=== PATIENT | male | born 1965 | race Caucasian/White ===

== ENCOUNTER 2023-01-31 13:57 | Outpatient (RCR) | payer MEDICARE, BC, SELFPAY | END 2023-01-31 23:59 | disposition home or self-care (01) | LOC: RPT 13:57 | PROVIDERS: ATTENDING PHYSICIAN Physical Medicine & Rehabilitation; FAMILY PHYSICIAN Family Medicine | DX: I69.398 Other sequelae of cerebral infarction (principal); Z73.6 Limitation of activities due to disability; G81.10 Spastic hemiplegia affecting unspecified side; G81.11 Spastic hemiplegia affecting right dominant side; M21.541 Acquired clubfoot, right foot | CPT/HCPCS: 97112; 97116; 97140 ==

== ENCOUNTER 2023-03-14 14:01 | Outpatient (RCR) | payer MEDICARE, BC, SELFPAY | END 2023-03-14 23:59 | disposition home or self-care (01) | LOC: RPT 14:01 | PROVIDERS: ATTENDING PHYSICIAN Physical Medicine & Rehabilitation; FAMILY PHYSICIAN Family Medicine | DX: I69.398 Other sequelae of cerebral infarction (principal); Z73.6 Limitation of activities due to disability; G81.10 Spastic hemiplegia affecting unspecified side; M21.541 Acquired clubfoot, right foot | CPT/HCPCS: 97110; 97112; 97140 ==

== ENCOUNTER 2023-04-24 12:59 | Outpatient (RCR) | payer MEDICARE, BC, SELFPAY | END 2023-04-24 23:59 | disposition home or self-care (01) | LOC: RPT 12:59 | PROVIDERS: ATTENDING PHYSICIAN Physical Medicine & Rehabilitation; FAMILY PHYSICIAN Family Medicine | DX: I69.398 Other sequelae of cerebral infarction (principal); Z73.6 Limitation of activities due to disability; G81.10 Spastic hemiplegia affecting unspecified side; M21.541 Acquired clubfoot, right foot | CPT/HCPCS: 97112; 97116; 97140 ==

== ENCOUNTER 2023-05-13 11:09 | Outpatient (RCR) | payer MEDICARE, BC, SELFPAY | END 2023-05-13 23:59 | disposition home or self-care (01) | LOC: RPT 11:09 | PROVIDERS: ATTENDING PHYSICIAN Physical Medicine & Rehabilitation; FAMILY PHYSICIAN Family Medicine | DX: I69.398 Other sequelae of cerebral infarction (principal); Z73.6 Limitation of activities due to disability; G81.10 Spastic hemiplegia affecting unspecified side; M21.541 Acquired clubfoot, right foot | CPT/HCPCS: 97112; 97116; 97140 ==

== ENCOUNTER 2023-06-20 14:59 | Outpatient (RCR) | payer MEDICARE, BC, SELFPAY | END 2023-06-20 23:59 | disposition home or self-care (01) | LOC: RPT 14:59 | PROVIDERS: ATTENDING PHYSICIAN Physical Medicine & Rehabilitation; FAMILY PHYSICIAN Family Medicine | DX: I69.398 Other sequelae of cerebral infarction (principal); Z73.6 Limitation of activities due to disability; G81.10 Spastic hemiplegia affecting unspecified side; M21.541 Acquired clubfoot, right foot | CPT/HCPCS: 97112; 97116; 97140 ==

== ENCOUNTER 2023-07-25 09:05 | Outpatient (RCR) | payer MEDICARE, BC, SELFPAY | END 2023-07-25 23:59 | disposition home or self-care (01) | LOC: RPT 09:05 | PROVIDERS: ATTENDING PHYSICIAN Physical Medicine & Rehabilitation; FAMILY PHYSICIAN Family Medicine | DX: I69.398 Other sequelae of cerebral infarction (principal); Z73.6 Limitation of activities due to disability; G81.10 Spastic hemiplegia affecting unspecified side; M21.541 Acquired clubfoot, right foot | CPT/HCPCS: 97112; 97116; 97140 ==

== ENCOUNTER 2023-08-08 10:30 | Outpatient (RCR) | payer MEDICARE, BC, SELFPAY | END 2023-08-08 23:59 | disposition home or self-care (01) | LOC: RPT 10:30 | PROVIDERS: ATTENDING PHYSICIAN Physical Medicine & Rehabilitation; FAMILY PHYSICIAN Family Medicine | DX: I69.398 Other sequelae of cerebral infarction (principal); Z73.6 Limitation of activities due to disability; M21.541 Acquired clubfoot, right foot; G81.10 Spastic hemiplegia affecting unspecified side | CPT/HCPCS: 97112; 97116; 97140 ==

== ENCOUNTER 2023-09-16 10:53 | Outpatient (RCR) | payer MEDICARE, OTHER, SELFPAY | END 2023-09-16 23:59 | disposition home or self-care (01) | LOC: RPT 10:53 | PROVIDERS: ATTENDING PHYSICIAN Physical Medicine & Rehabilitation; FAMILY PHYSICIAN Family Medicine | DX: I69.398 Other sequelae of cerebral infarction (principal); R26.89 Other abnormalities of gait and mobility; G81.10 Spastic hemiplegia affecting unspecified side; Z73.6 Limitation of activities due to disability; M21.541 Acquired clubfoot, right foot | CPT/HCPCS: 97112; 97140 ==

== ENCOUNTER 2023-10-14 14:58 | Outpatient (RCR) | payer MEDICARE, OTHER, SELFPAY | END 2023-10-14 23:59 | disposition home or self-care (01) | LOC: RPT 14:58 | PROVIDERS: ATTENDING PHYSICIAN Physical Medicine & Rehabilitation; FAMILY PHYSICIAN Family Medicine | DX: I69.398 Other sequelae of cerebral infarction (principal); Z73.6 Limitation of activities due to disability; G81.10 Spastic hemiplegia affecting unspecified side; M21.541 Acquired clubfoot, right foot | CPT/HCPCS: 97112; 97116; 97140 ==

== ENCOUNTER 2023-11-25 12:55 | Outpatient (RCR) | payer MEDICARE, OTHER, SELFPAY | END 2023-11-25 23:59 | disposition home or self-care (01) | LOC: RPT 12:55 | PROVIDERS: ATTENDING PHYSICIAN Physical Medicine & Rehabilitation; FAMILY PHYSICIAN Family Medicine | DX: I69.398 Other sequelae of cerebral infarction (principal); Z73.6 Limitation of activities due to disability; G81.10 Spastic hemiplegia affecting unspecified side; M21.541 Acquired clubfoot, right foot | CPT/HCPCS: 97116; 97140 ==

== ENCOUNTER 2024-01-13 14:08 | Outpatient (RCR) | payer MEDICARE, OTHER, SELFPAY | END 2024-01-13 23:59 | disposition home or self-care (01) | LOC: RPT 14:08 | PROVIDERS: ATTENDING PHYSICIAN Physical Medicine & Rehabilitation; FAMILY PHYSICIAN Family Medicine | DX: S06.9X0D Unspecified intracranial injury without loss of consciousness, subsequent encounter (principal); R41.840 Attention and concentration deficit; R41.89 Other symptoms and signs involving cognitive functions and awareness; Z73.6 Limitation of activities due to disability | CPT/HCPCS: 96125; 97110; 97112; 97116; 97129; 97130; 97140; 97163; 97530 ==

== ENCOUNTER 2024-02-10 15:14 | Outpatient (RCR) | payer MEDICARE, OTHER, SELFPAY | END 2024-02-10 23:59 | disposition home or self-care (01) | LOC: RPT 15:14 | PROVIDERS: ATTENDING PHYSICIAN Physical Medicine & Rehabilitation; FAMILY PHYSICIAN Family Medicine | DX: S06.9X0D Unspecified intracranial injury without loss of consciousness, subsequent encounter (principal); R41.840 Attention and concentration deficit; R41.89 Other symptoms and signs involving cognitive functions and awareness; Z73.6 Limitation of activities due to disability | CPT/HCPCS: 97110; 97112; 97116; 97129; 97130; 97140; 97530 ==

== ENCOUNTER 2024-03-25 13:23 | Outpatient (RCR) | payer MEDICARE, OTHER, SELFPAY | END 2024-03-25 23:59 | disposition home or self-care (01) | LOC: RPT 13:23 | PROVIDERS: ATTENDING PHYSICIAN Physical Medicine & Rehabilitation; FAMILY PHYSICIAN Family Medicine | DX: S06.9X0D Unspecified intracranial injury without loss of consciousness, subsequent encounter (principal); S42.001D Fracture of unspecified part of right clavicle, subsequent encounter for fracture with routine healing; Z73.6 Limitation of activities due to disability; R26.2 Difficulty in walking, not elsewhere classified; R41.840 Attention and concentration deficit; R41.89 Other symptoms and signs involving cognitive functions and awareness; M62.81 Muscle weakness (generalized); I69.351 Hemiplegia and hemiparesis following cerebral infarction affecting right dominant side | CPT/HCPCS: 97110; 97112; 97116; 97129; 97130; 97140; 97530 ==

== ENCOUNTER 2024-04-22 12:52 | Outpatient (RCR) | payer MEDICARE, OTHER, SELFPAY | END 2024-04-22 23:59 | disposition home or self-care (01) | LOC: RPT 12:52 | PROVIDERS: ATTENDING PHYSICIAN Physical Medicine & Rehabilitation; FAMILY PHYSICIAN Family Medicine | DX: S06.9X0D Unspecified intracranial injury without loss of consciousness, subsequent encounter (principal); S42.001D Fracture of unspecified part of right clavicle, subsequent encounter for fracture with routine healing (principal); Z73.6 Limitation of activities due to disability; R26.2 Difficulty in walking, not elsewhere classified; R41.840 Attention and concentration deficit; R41.89 Other symptoms and signs involving cognitive functions and awareness; M62.81 Muscle weakness (generalized); I69.351 Hemiplegia and hemiparesis following cerebral infarction affecting right dominant side | CPT/HCPCS: 97110; 97112; 97116; 97129; 97130; 97140 ==

== ENCOUNTER 2024-05-20 14:23 | Outpatient (RCR) | payer MEDICARE, OTHER, SELFPAY | END 2024-05-20 23:59 | disposition home or self-care (01) | LOC: RPT 14:23 | PROVIDERS: ATTENDING PHYSICIAN Physical Medicine & Rehabilitation; FAMILY PHYSICIAN Family Medicine | DX: S06.9X0S Unspecified intracranial injury without loss of consciousness, sequela (principal); I69.351 Hemiplegia and hemiparesis following cerebral infarction affecting right dominant side; S42.001D Fracture of unspecified part of right clavicle, subsequent encounter for fracture with routine healing; R41.840 Attention and concentration deficit; R26.2 Difficulty in walking, not elsewhere classified; R41.89 Other symptoms and signs involving cognitive functions and awareness; Z73.6 Limitation of activities due to disability; M62.81 Muscle weakness (generalized); S06.9X0D Unspecified intracranial injury without loss of consciousness, subsequent encounter | CPT/HCPCS: 97110; 97112; 97116; 97129; 97130; 97140 ==

== ENCOUNTER 2024-06-10 12:52 | Outpatient (RCR) | payer MEDICARE, OTHER, SELFPAY | END 2024-06-10 23:59 | disposition home or self-care (01) | LOC: RPT 12:52 | PROVIDERS: ATTENDING PHYSICIAN Physical Medicine & Rehabilitation; FAMILY PHYSICIAN Family Medicine | DX: S06.9X0S Unspecified intracranial injury without loss of consciousness, sequela (principal); S42.001D Fracture of unspecified part of right clavicle, subsequent encounter for fracture with routine healing; R41.840 Attention and concentration deficit; R41.89 Other symptoms and signs involving cognitive functions and awareness; Z73.6 Limitation of activities due to disability; I69.351 Hemiplegia and hemiparesis following cerebral infarction affecting right dominant side; R26.2 Difficulty in walking, not elsewhere classified; M62.81 Muscle weakness (generalized); S06.9X0D Unspecified intracranial injury without loss of consciousness, subsequent encounter | CPT/HCPCS: 97110; 97112; 97129; 97130; 97140 ==

== ENCOUNTER 2024-06-23 14:29 | Emergency (ER) | payer MEDICARE, OTHER, SELFPAY ==
[2024-06-23 14:31] VITALS: BP 152/102
[2024-06-23 14:50] LABS: % Eosinophils 0.6 % (0-6); % Immature Granulocytes 0.2 % (0-0.5); % Lymphocytes 22.7 % (20.5-51.1); % Monocytes 3.7 % (1.7-9.3); % Neutrophils 72.8 % (42.2-75.2); Absolute Lymphocytes 1.2 10^3/uL (1.2-3.4); Absolute Monocytes 0.2 10^3/uL (0.1-0.6); Absolute Neutrophils 3.7 10^3/uL (1.4-6.5); Hematocrit 38.2 % (39.0-52.0); Hemoglobin 13.7 g/dL (13.0-18.0); Mean Corp Hgb Conc. 35.9 g/dL (33.0-37.0); Mean Corpuscular Hgb 31.4 pg (27.0-31.0); Mean Corpuscular Volume 87.6 fL (80.0-94.0); Mean Platelet Volume 9.2 fL (7.4-10.4); Nucleated Red Blood Cells % 0 % (-); Platelet Count 244 10^3/uL (130-400); Red Blood Cell Count 4.36 10^6/uL (4.70-6.10); Red Cell Dist. Width 12.1 % (11.5-14.5); White Blood Cell Count 5.1 10^3/uL (4.8-10.8)
[2024-06-23 15:07] LABS: ALT (SGPT) 21 U/L (0-50); AST (SGOT) 28 U/L (17-59); Albumin 4.4 g/dl (3.5-5.0); Alkaline Phosphatase 98 U/L (38-126); Blood Urea Nitrogen 4 mg/dl (9-20); Calcium 9.5 mg/dl (8.4-10.2); Carbon Dioxide 29 mmol/L (22-30); Chloride 94 mmol/L (98-107); Glucose 114 mg/dl (70-99); Potassium 4.2 mmol/L (3.5-5.1); Sodium 130 mmol/L (135-145); eGFR > 60.00
[2024-06-23 16:09] VITALS: BMI 30.2
[2024-06-23 16:15] VITALS: BP 135/85
[2024-06-23] MEDS: TORADOL 30 MG IV (17:03)
[2024-06-23] MEDS: NSS 1000 IV (17:03)
[2024-06-23] MEDS: COMPAZINE 10 MG IV (17:04)
[2024-06-23] MEDS: BENADRYL 25 MG IV (17:06)
[2024-06-23 18:30] VITALS: BP 145/85
--- NOTE | 2024-06-23 22:08 | ED.GENMED ---
History of Present Illness
General
Chief Complaint: Headache
Source: patient
Exam Limitations: none
Time Seen by Provider: 06/23/24 16:08
Nursing documentation reviewed up to this point in time: agreed with
History of Present Illness
History of Present Illness:
Patient to ED with complaint of headache x 4 days. Reports light sensitivity. Denies fever/chlls, recent illness. No history of trauma. Nausea without vomiting. No prior history of same. Brought to ED by brother for eval.
Past History
Past History
ED Past Medical History: CVA and GERD
ED Past Surgical History: Other
Social History
Tobacco: Non-smoker
Alcohol: None
Personal: Single
Living: with family
Review of Systems
Review of Systems
Allergies reviewed?: Yes
All Other Systems: ROS reviewed and negative except as documented in HPI and ROS
Constitutional: Reports no symptoms
EENT: Reports other (light sensitivity)
Respiratory: Reports no symptoms
Cardiac: Reports no symptoms
ABD/GI: Reports no symptoms
: Reports no symptoms
Musculoskeletal: Reports no symptoms
Skin: Reports no symptoms
Neurological: Reports headache
Psychiatric: Reports no symptoms
Phy Exam
General Physical Exam
General Presentation: mild distress
General age: appears stated age
General Skin: warm and dry
General Habitus: normal
General Mental: alert
Eye Exam
Eye Exam: PERRL, EOMI, conjunctiva normal and globe normal
Cardiovascular Exam
Cardiovascular Exam: regular rate/rhythm
Neurological Exam
Neurological Exam: alert, oriented x3, CN II-XII intact, no motor deficits, no sensory deficits, speech normal and normal gait
Musculoskeletal Exam
Musculoskeletal Exam: full ROM
Skin Exam
Skin Exam: normal color, warm/dry and no rash
Psychiatric Exam
Psychiatric Exam: normal mood/affect
Course
Orders/Labs/Results
Orders:
Orders
06/23/24 14:33
EKG [Electrocardiogram (*1)] Urgent
Reason for Study: Hypertension, Benign
CT Head W/o Iv Contrast Urgent
Comment:
Reason For Exam: headache x3 days, stroke history
EKG- Treatment ONCE
06/23/24 14:42
Complete Blood Count/With Diff Urgent
Comprehensive Metabolic Panel Urgent
06/23/24 16:55
0.9% Sodium Chloride 1000 ml [Nss] 1,000 ml IV BOLUS
Diphenhydramine [Benadryl] 25 mg IV NOW STA
Ketorolac [Toradol] 30 mg IV NOW STA
Prochlorperazine [Compazine] 10 mg IV NOW STA
Abnormal Lab Results
06/23/24
14:42
RBC 4.36 L 10^6/uL
(4.70-6.10)
Hct 38.2 L %
(39.0-52.0)
MCH 31.4 H pg
(27.0-31.0)
Sodium 130 L mmol/L
(135-145)
Chloride 94 L mmol/L
(98-107)
BUN 4 L mg/dl
(9-20)
Glucose 114 H mg/dl
(70-99)
06/23/24 14:42
06/23/24 14:42
Vital Signs
Initial and Last Documented VS:
Initial Vital Signs
Temp Pulse Resp BP Pulse Ox
99.2 F 89 18 152/102 99
06/23/24 14:31 06/23/24 14:31 06/23/24 14:31 06/23/24 14:31 06/23/24 14:31
Last Documented Vital Signs
Temp Pulse Resp BP Pulse Ox
99.2 F 81 18 145/85 98
06/23/24 14:31 06/23/24 18:30 06/23/24 18:30 06/23/24 18:30 06/23/24 18:30
*Radiology
Radiology exam reviewed: radiology read reviewed
*Pulse Oximetry
Patient hypoxic: no
*Critical Care Note
Total Time (30-74mins, 75-104mins- exclusive of procedures): Not Applicable
Update Note
Update Note:
Patient to ED wtih complaint of headache x [address] of head neg. for acute findings. Labs reviewed, no concerning findings. He remains afebrile. No meningeal s/s. Headache resolved with migraine cocktail, IVF. WIll discharge home and he will
follow up with PCP. Given instructions on s/s to return to ED and he is agreeable to plan.
ED Attending Note
-
Portions of this chart may have been created with voice recognition software.� Occasional wrong word or��sound alike� substitutions may have occurred due to the inherent limitations of voice recognition software.
Discharge Plan
Departure
Patient Disposition: Home (Routine Discharge)
Date of Disposition: 06/23/24
Time of Disposition: 18:20
Patient with high blood pressure during this ER visit?: No
Condition: Good
Covid-19: Not Applicable
Discharge Problem:
Headache
Instructions: Headache, Adult (DC)
Prescriptions:
No Action
paroxetine HCl 20 MG tablet
40 mg PO QPM
atorvastatin 80 MG tablet
80 mg PO QPM Qty: 30 0RF
baclofen 20 mg Tablet
20 mg PO QID 30 Days Qty: 120 0RF
oxycodone 5 mg Tablet
5 mg PO Q4HPRN PRN (Reason: Moderate or severe pain) 3 Days Qty: 10 0RF
sodium chloride 1,000 mg Tablet,Soluble
1,000 mg PO BID 30 Days Qty: 60 0RF
lidocaine 4 % Adhesive Patch,Medicated
2 patch TOPICAL DAILY Qty: 0 0RF
Rx Instructions:
2 patches applies to R clavical
lidocaine 5 % adhesive patch,medicated
2 patch topical DAILY 30 Days Qty: 60 0RF
Referrals:
Marie Vickers MD [Family Provider] - Tomorrow
Interventions
Interventions:
*Risk Screen - Suicide Last Done: 06/23/24 14:33
*General Assessment Last Done: 06/23/24 14:33
*Neglect/Abuse Screening Last Done: 06/23/24 14:33
*ED- Fall Risk Assessment Last Done: 06/23/24 16:09
*ED COVID-19 Vaccine History Last Done: 06/23/24 14:33
*Nursing Disposition Last Done: 06/23/24 18:46
ED- Neurological Assessment Last Done: 06/23/24 17:00
Discharge Date and Time
Discharge Date/Time: 06/23/24 18:47
Print Language: YI
== END 2024-06-23 18:47 | disposition home or self-care (01) ==
LOC: EMR 14:29
PROVIDERS: Emergency Medicine; EMERGENCY PHYSICIAN Emergency Medicine; FAMILY PHYSICIAN Family Medicine
DX: R51.9 Headache, unspecified (principal)
CPT/HCPCS: 99285; 96374; 96375 ×2; 96361; 70450; 80053; 85025; 93005

== ENCOUNTER 2024-07-13 13:46 | Outpatient (RCR) | payer MEDICARE, OTHER, SELFPAY | END 2024-07-13 23:59 | disposition home or self-care (01) | LOC: RPT 13:46 | PROVIDERS: ATTENDING PHYSICIAN Physical Medicine & Rehabilitation; FAMILY PHYSICIAN Family Medicine | DX: S06.9X0S Unspecified intracranial injury without loss of consciousness, sequela (principal); R41.840 Attention and concentration deficit; R41.89 Other symptoms and signs involving cognitive functions and awareness; Z73.6 Limitation of activities due to disability; S42.001D Fracture of unspecified part of right clavicle, subsequent encounter for fracture with routine healing; R26.2 Difficulty in walking, not elsewhere classified; M62.81 Muscle weakness (generalized); S06.9X0D Unspecified intracranial injury without loss of consciousness, subsequent encounter; I69.351 Hemiplegia and hemiparesis following cerebral infarction affecting right dominant side | CPT/HCPCS: 97110; 97112; 97116; 97129; 97130; 97140 ==

== ENCOUNTER 2024-08-19 14:07 | Outpatient (RCR) | payer MEDICARE, OTHER, SELFPAY | END 2024-08-19 23:59 | disposition home or self-care (01) | LOC: RPT 14:07 | PROVIDERS: ATTENDING PHYSICIAN Physical Medicine & Rehabilitation; FAMILY PHYSICIAN Family Medicine | DX: S06.9X0S Unspecified intracranial injury without loss of consciousness, sequela (principal); X58.XXXD Exposure to other specified factors, subsequent encounter; R41.840 Attention and concentration deficit; R41.89 Other symptoms and signs involving cognitive functions and awareness; Z73.6 Limitation of activities due to disability; R26.2 Difficulty in walking, not elsewhere classified; S42.001D Fracture of unspecified part of right clavicle, subsequent encounter for fracture with routine healing; S06.9X0D Unspecified intracranial injury without loss of consciousness, subsequent encounter; M62.81 Muscle weakness (generalized); I69.351 Hemiplegia and hemiparesis following cerebral infarction affecting right dominant side | CPT/HCPCS: 97110; 97112; 97129; 97130; 97140; 97530 ==

== ENCOUNTER 2024-09-17 11:54 | Outpatient (RCR) | payer MEDICARE, OTHER, SELFPAY | END 2024-09-17 23:59 | disposition home or self-care (01) | LOC: RPT 11:54 | PROVIDERS: ATTENDING PHYSICIAN Physical Medicine & Rehabilitation; FAMILY PHYSICIAN Family Medicine | DX: S06.9X0D Unspecified intracranial injury without loss of consciousness, subsequent encounter (principal); R41.840 Attention and concentration deficit; R41.89 Other symptoms and signs involving cognitive functions and awareness; Z73.6 Limitation of activities due to disability; X58.XXXD Exposure to other specified factors, subsequent encounter; S06.9X0S Unspecified intracranial injury without loss of consciousness, sequela; S42.001D Fracture of unspecified part of right clavicle, subsequent encounter for fracture with routine healing; R26.2 Difficulty in walking, not elsewhere classified; M62.81 Muscle weakness (generalized); I69.351 Hemiplegia and hemiparesis following cerebral infarction affecting right dominant side | CPT/HCPCS: 97110; 97112; 97129; 97130; 97140; 97167; 97530 ==

== ENCOUNTER 2024-10-12 12:01 | Outpatient (RCR) | payer MEDICARE, OTHER, SELFPAY | END 2024-10-12 23:59 | disposition home or self-care (01) | LOC: RPT 12:01 | PROVIDERS: ATTENDING PHYSICIAN Physical Medicine & Rehabilitation; FAMILY PHYSICIAN Family Medicine | DX: S06.9X0D Unspecified intracranial injury without loss of consciousness, subsequent encounter (principal); R41.840 Attention and concentration deficit; R41.89 Other symptoms and signs involving cognitive functions and awareness; Z73.6 Limitation of activities due to disability; R26.2 Difficulty in walking, not elsewhere classified; X58.XXXD Exposure to other specified factors, subsequent encounter; S06.9X0S Unspecified intracranial injury without loss of consciousness, sequela; S42.001D Fracture of unspecified part of right clavicle, subsequent encounter for fracture with routine healing; I69.351 Hemiplegia and hemiparesis following cerebral infarction affecting right dominant side; M62.81 Muscle weakness (generalized) | CPT/HCPCS: 97110; 97112; 97129; 97130; 97140 ==

== ENCOUNTER 2024-11-23 12:01 | Outpatient (RCR) | payer MEDICARE, OTHER, SELFPAY | END 2024-11-23 23:59 | disposition home or self-care (01) | LOC: RPT 12:01 | PROVIDERS: ATTENDING PHYSICIAN Physical Medicine & Rehabilitation; FAMILY PHYSICIAN Family Medicine | DX: S06.9X0D Unspecified intracranial injury without loss of consciousness, subsequent encounter (principal); R41.840 Attention and concentration deficit; R41.89 Other symptoms and signs involving cognitive functions and awareness; Z73.6 Limitation of activities due to disability; R26.2 Difficulty in walking, not elsewhere classified; S42.001D Fracture of unspecified part of right clavicle, subsequent encounter for fracture with routine healing; M62.81 Muscle weakness (generalized); I69.351 Hemiplegia and hemiparesis following cerebral infarction affecting right dominant side; X58.XXXD Exposure to other specified factors, subsequent encounter; S06.9X0S Unspecified intracranial injury without loss of consciousness, sequela | CPT/HCPCS: 97014; 97110; 97112; 97129; 97130; 97140; 97530; 97535 ==

== ENCOUNTER 2024-12-23 12:29 | Outpatient (RCR) | payer MEDICARE, OTHER, SELFPAY | END 2024-12-23 23:59 | disposition home or self-care (01) | LOC: RPT 12:29 | PROVIDERS: ATTENDING PHYSICIAN Physical Medicine & Rehabilitation; FAMILY PHYSICIAN Family Medicine | DX: S06.9X0D Unspecified intracranial injury without loss of consciousness, subsequent encounter (principal); R41.840 Attention and concentration deficit; R41.89 Other symptoms and signs involving cognitive functions and awareness; Z73.6 Limitation of activities due to disability; R26.2 Difficulty in walking, not elsewhere classified; S42.001D Fracture of unspecified part of right clavicle, subsequent encounter for fracture with routine healing; M62.81 Muscle weakness (generalized); I69.351 Hemiplegia and hemiparesis following cerebral infarction affecting right dominant side; S06.9X0S Unspecified intracranial injury without loss of consciousness, sequela; X58.XXXD Exposure to other specified factors, subsequent encounter | CPT/HCPCS: 97014; 97110; 97112; 97140; 97530; 97535; 97760 ==

== ENCOUNTER 2025-01-20 07:24 | Outpatient (RCR) | payer MEDICARE, OTHER, SELFPAY | END 2025-01-20 23:59 | disposition home or self-care (01) | LOC: RPT 07:24 | PROVIDERS: ATTENDING PHYSICIAN Physical Medicine & Rehabilitation; FAMILY PHYSICIAN Family Medicine | DX: S06.9X0D Unspecified intracranial injury without loss of consciousness, subsequent encounter (principal); R41.840 Attention and concentration deficit; R41.89 Other symptoms and signs involving cognitive functions and awareness; Z73.6 Limitation of activities due to disability; R26.2 Difficulty in walking, not elsewhere classified; S42.001D Fracture of unspecified part of right clavicle, subsequent encounter for fracture with routine healing; M62.81 Muscle weakness (generalized); I69.351 Hemiplegia and hemiparesis following cerebral infarction affecting right dominant side; X58.XXXD Exposure to other specified factors, subsequent encounter; S06.9X0S Unspecified intracranial injury without loss of consciousness, sequela | CPT/HCPCS: 97010; 97110; 97112; 97116; 97140 ==

== ENCOUNTER 2025-02-23 08:43 | Outpatient (RCR) | payer MEDICARE, OTHER, SELFPAY | END 2025-02-23 23:59 | disposition home or self-care (01) | LOC: RPT 08:43 | PROVIDERS: ATTENDING PHYSICIAN Physical Medicine & Rehabilitation; FAMILY PHYSICIAN Family Medicine | DX: S06.9X0D Unspecified intracranial injury without loss of consciousness, subsequent encounter (principal); R41.840 Attention and concentration deficit; R41.89 Other symptoms and signs involving cognitive functions and awareness; Z73.6 Limitation of activities due to disability; R26.2 Difficulty in walking, not elsewhere classified; S42.001D Fracture of unspecified part of right clavicle, subsequent encounter for fracture with routine healing; M62.81 Muscle weakness (generalized); I69.351 Hemiplegia and hemiparesis following cerebral infarction affecting right dominant side; X58.XXXD Exposure to other specified factors, subsequent encounter; I69.398 Other sequelae of cerebral infarction; S06.9X0S Unspecified intracranial injury without loss of consciousness, sequela | CPT/HCPCS: 97010; 97110; 97112; 97140; 97530; 97535; 97763 ==